=== PATIENT | female | born 1955 | race American Indian/Alaskan Native ===

== ENCOUNTER 2019-04-10 19:13 | Emergency (ER) | payer OTHER ==
[2019-04-10 19:24] VITALS: BP 162/82
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
== END 2019-04-10 22:00 | disposition home or self-care (01) ==
LOC: ED 19:13
DX: M54.2 Cervicalgia (principal); R51 Headache; I10 Essential (primary) hypertension; K21.0 Gastro-esophageal reflux disease with esophagitis; E78.00 Pure hypercholesterolemia, unspecified; Z96.651 Presence of right artificial knee joint; Z79.899 Other long term (current) drug therapy; V59.59XA Passenger in pick-up truck or van injured in collision with other motor vehicles in traffic accident, initial encounter; Y93.89 Activity, other specified; Y92.488 Other paved roadways as the place of occurrence of the external cause; Y99.8 Other external cause status
CPT/HCPCS: 70450; 99283